=== PATIENT | female | born 1960 | race Caucasian/White ===

== ENCOUNTER 2017-05-28 13:25 | Emergency (ER) | payer BC ==
[2017-05-28 14:25] VITALS: BP 147/79; PULSE 82; O2SAT 96
--- NOTE | 2017-05-28 14:32 | ERPHSYRPT ---
- History of Present Illness Time Seen by Provider: 05/28/17 14:27 Source: patient Exam Limitations: no limitations Patient Subjective Stated Complaint: patient has had chills , sore throat doesnt feel well just got home from [place] yesterday. headache, tired, easily short of breath on exertion Triage Nursing Assessment: pt alert and orientedx3, lung sounds clear, throat red, pulses equal bilateral radius, nasal drainage, intermittant cough, pupils perrla3, skin warm dry and intact, patietn able to ambualte gait is steady, no other abnormalities or conditions noted Physician History: diffuse aches, right wrist carpal tunnel acting up, headache, sorethroat, no fever, no injury, speech fluent, no visual disturbance Hx Tetanus, Diphtheria Vaccination/Date Given: Yes Hx Influenza Vaccination/Date Given: No Hx Pneumococcal Vaccination/Date Given: No Immunizations Up to Date: Yes - Review of Systems Constitutional: No Fever Eyes: No Symptoms Ears, Nose, & Throat: Mouth Pain Respiratory: Cough, No Dyspnea Cardiac: No Chest Pain Abdominal/Gastrointestinal: No Abdominal Pain, No Vomiting Genitourinary Symptoms: No Dysuria Musculoskeletal: Arthralgias, No Injury Skin: No Symptoms Neurological: Headache, No Dizziness, No Focal Weakness, No Lethargy Psychological: No Symptoms - Past Medical History Pertinent Past Medical History: No Cardiac History: High Cholesterol, Hypertension - Past Surgical History Past Surgical History: Yes Gastrointestinal: Cholecystectomy - Social History Smoking Status: Former smoker Drug Use: none - Female History Hx Now: No - Nursing Vital Signs Nursing Vital Signs: Initial Vital Signs Temperature 97.8 F 05/28/17 14:16 Pulse Rate 82 05/28/17 14:16 Respiratory Rate 20 05/28/17 14:16 Blood Pressure 147/79 05/28/17 14:16 O2 Sat by Pulse Oximetry 96 05/28/17 14:16 Pain Scale Pain Intensity 0 - Physical Exam General Appearance: no apparent distress Eye Exam: PERRL/EOMI Ears, Nose, Throat Exam: pharyngeal erythema, No dry mucous membranes Neck Exam: normal inspection, No meningismus Respiratory Exam: normal breath sounds, No chest tenderness Cardiovascular Exam: regular rate/rhythm Gastrointestinal/Abdomen Exam: soft Extremity Exam: normal range of motion Neurologic Exam: alert, oriented x 3 Skin Exam: normal color, warm, dry SpO2 Interpretation: normal SpO2: 96 Oxygen Delivery: Room Air - Course Nursing assessment & vital signs reviewed: Yes - Progress Progress: unchanged Progress Note: 05/28/17 14:31 pt refused lab work or iv hydration Discussed with Dr.: Andrés Will see patient in: office Counseled pt/family regarding: diagnosis, need for follow-up - Departure Time of Disposition: 14:32 Departure Disposition: Home Clinical Impression: Sore throat Condition: Stable Critical Care Time: No Referrals: JACKSON JOHNSON [Primary Care Provider] - Instructions: Strep Throat, Viral Pharyngitis Additional Instructions: rosanna posada, yenny rodriguez, johnny
[2017-05-28] MEDS ORDERED: MOTRIN 400 MG PO ONE (14:33)
[2017-05-28] MEDS ORDERED: MOTRIN 400 MG ONE (14:42)
== END 2017-05-28 14:44 | disposition home or self-care (01) ==
LOC: ED 13:25
DX: J02.9 Acute pharyngitis, unspecified (principal); R51 Headache; R05 Cough; E78.00 Pure hypercholesterolemia, unspecified; I10 Essential (primary) hypertension
CPT/HCPCS: 99282; A9270-GY